=== PATIENT | female | born 1995 | race Caucasian/White ===

== ENCOUNTER 2018-04-12 17:24 | Emergency (ER) | payer OTHER ==
[2018-04-12 17:39] VITALS: BP 125/88
--- NOTE | 2018-04-12 17:49 | EDPHY ---
H & P Time Seen by Provider: 04/12/18 17:45 HPI/ROS: CHIEF COMPLAINT: Left elbow pain post fall on outstretched wrist hand HISTORY OF PRESENT ILLNESS: 22-year-old female with up-to-date tetanus complaining of left elbow pain after she sustained a mechanical fall while walking in a parking lot landing on her outstretched hand and then impacted her left elbow. She denies hand wrist pain. This was a mechanical non syncopal episode. She has reproducible pain with range of motion and palpation. PHYSICAL EXAM (Prior to examination, patient consented to physical exam, hands were washed and my usual and customary physical exam procedures followed) 1) GENERAL: Well-developed, well-nourished, alert and oriented. Appears to be in no acute distress. 2) HEAD: Normocephalic 3) HEENT: Pupils equal, round, reactive to light bilaterally. 4) LUNGS: Breathing comfortably. 5) MUSCULOSKELETAL: Soft compartments. Tender to palpation dorsal left elbow. No radial head pain. He clavicle humerus shoulder nontender. Wrist hand nontender. 6) SKIN: Abrasion to the dorsal left elbow. Tender to palpation same location. No tenting. 7) VASCULAR: pulses and cap refill present are brisk 8) NEUROLOGIC: Radial, ulnar, median nerve function intact with no deficits appreciated on exam DIFFERENTIAL DIAGNOSIS: in no particular order including but not limited to fracture, sprain, compartment syndrome Xray of the left elbow interpreted by myself: Nondisplaced radial head fracture Procedure: Splint An upper extremity sling was applied by ER printer repair technician. After application of the splint I returned and re-examined the patient. The splint was adequately immobilizing the joint and distal to the splint the patient's circulation and sensation were intact. Patient shows no signs of compartment syndrome. Was given orthopedic precautions. Smoking Status: Never smoked Constitutional: Initial Vital Signs Temperature (C) 36.7 C 04/12/18 17:35 Heart Rate 72 04/12/18 17:35 Respiratory Rate 16 04/12/18 17:35 Blood Pressure 125/88 H 04/12/18 17:35 O2 Sat (%) 96 04/12/18 17:35 O2 Delivery Mode Room Air Allergies/Adverse Reactions: bacitracin [From Neosporin ([id number])] Allergy (Verified 04/12/18 17:35) neomycin [From Neosporin ([id number])] Allergy (Verified 04/12/18 17:35) polymyxin B [From Neosporin ([id number])] Allergy (Verified 04/12/18 17:35) Home Medications: Medication Instructions Recorded NK [No Known Home Meds] 04/12/18 MDM/Departure - MDM Imaging Results: Imaging Impressions Elbow X-Ray 04/12/18 17:39 Impression: Acute minimally impacted radial neck fracture with effusion. Images reviewed myself ED Course/Re-evaluation: I saw this patient independently based on established practice protocols. Care of patient under supervision of secondary supervising physician Dr George . - Depart Disposition: Home, Routine, Self-Care Clinical Impression: Radial head fracture, closed Qualifiers: Encounter type: initial encounter Fracture alignment: nondisplaced Laterality: left Qualified Code(s): S52.125A - Nondisplaced fracture of head of left radius , initial encounter for closed fracture Condition: Good Instructions: Elbow Fracture (ED) Additional Instructions: Return to the ER immediately if you experience discoloration, have worsening pain, numbness, tingling, or any other symptoms that concern you. If you received x-rays in the emergency department today, be advised, that ligamentous , tendon, muscular, and other non-bony injury cannot be fully ruled out. Try to keep your affected extremity elevated above the level of your chest, and keep cold packs on the affected area, for the next 48 hours. Adult Pain & Fever Control: We recommend Acetaminophen (Tylenol) and Ibuprofen (Motrin,Advil) for pain and fever control. When fever is high or pain severe, both drugs can be used at the same time, but at different intervals. Please note the time differences. Your dose is: Acetaminophen 650mg every 4 to 6 hours Ibuprofen 600mg every 6 hours with food OR Note: do not take Acetaminophen with Hydrocodone (Vicodin, Lortab) or Oycodone (Percocet). These medications also contain Acetaminophen. No more than 3000mg of Acetaminophen should be taken in 24 hours (for an adult). Referrals: Daphne Vincent MD [Medical Doctor] - 5-7 days, call for appt.
== END 2018-04-12 18:24 | disposition home or self-care (01) ==
DX: S52.125A Nondisplaced fracture of head of left radius, initial encounter for closed fracture (principal); W01.198A Fall on same level from slipping, tripping and stumbling with subsequent striking against other object, initial encounter; Y92.481 Parking lot as the place of occurrence of the external cause; Y99.8 Other external cause status; Y93.01 Activity, walking, marching and hiking
CPT/HCPCS: A4565

== ENCOUNTER 2018-06-29 19:38 | Emergency (ER) | payer OTHER ==
--- NOTE | 2018-06-29 19:54 | EDPHY ---
H & P Stated Complaint: chest pressure, SOB, right arm numbness for months intemittantly Time Seen by Provider: 06/29/18 19:54 - Personal History LMP (Females 10-55): Now Current Tetanus/Diphtheria Vaccine: Yes Current Tetanus Diphtheria and Acellular Pertussis (TDAP): Yes - Medical/Surgical History Hx Asthma: No Hx Chronic Respiratory Disease: No Hx Diabetes: No Hx Cardiac Disease: No Hx Renal Disease: No Hx Cirrhosis: No Hx Alcoholism: No Hx HIV/AIDS: No Hx Splenectomy or Spleen Trauma: No Other PMH: jaw surgery - Social History Smoking Status: Never smoked Constitutional: Initial Vital Signs Temperature (C) 36.6 C 06/29/18 19:45 Heart Rate 73 06/29/18 19:45 Respiratory Rate 18 06/29/18 19:45 Blood Pressure 138/94 H 06/29/18 19:45 O2 Sat (%) 100 06/29/18 19:45 O2 Delivery Mode Room Air Allergies/Adverse Reactions: bacitracin [From Neosporin ([id number])] Allergy (Verified 06/29/18 19:47) neomycin [From Neosporin ([id number])] Allergy (Verified 06/29/18 19:47) polymyxin B [From Neosporin ([id number])] Allergy (Verified 06/29/18 19:47) Home Medications: Medication Instructions Recorded NK [No Known Home Meds] 04/12/18 Medical Decision Making ED Course/Re-evaluation: CHIEF COMPLAINT: Shortness of breath. HISTORY OF PRESENT ILLNESS: This patient is a 22 year old female who presents with difficulty breathing and right upper extremity numbness. About one hour ago, she began feeling very lightheaded and started to lose her vision and hearing. She endorses associated chest tightness and numbness in her right arm. She states that she was breathing heavily and rapidly at first. The patient states this has happened about once per day for the past two weeks. She denies any history of anxiety or panic attacks. She cannot identify any unusual stressors lately. Denies any chance of . No fever, vomiting, diarrhea, urinary complaints, headache. No recent trauma or illness. REVIEW OF SYSTEMS: A comprehensive 10 system review of systems is otherwise negative aside from elements mentioned in the history of present illness and medical decision making. PHYSICAL EXAM: HR, BP, O2 Sat, RR. Temp noted General Appearance: Alert, well hydrated, appropriate, and non-toxic appearing. Head: Atraumatic without scalp tenderness or obvious injury Eyes: Pupils equal, round, reactive to light and accommodation, EOMI, no trauma , no injection. Ears: Clear bilaterally, no perforation, normal landmarks Nose: Atraumatic, no rhinorrhea, clear. Throat: There is no erythema or exudates, no lesions, normal tonsils, mucus membranes moist. Neck: Supple, 2+ carotid upstroke, nontender, no lymphadenopathy. Respiratory: No retractions, no distress, no wheezes, and no accessory muscle use. Lungs are clear to auscultation bilaterally. Cardiovascular: Regular rate and rhythm, no murmurs, rubs, or gallops. Bilateral carotid, radial, dorsalis pedis, and posterior tibial pulses intact. Good capillary refill all extremities. Gastrointestinal: Abdomen is soft, nontender, non-distended, no masses, no rebound, no guarding, no peritoneal signs. Musculoskeletal: Normal active ROM of all extremities, atraumatic. Neurological: Alert, appropriate, and interactive. The patient has normal DTRs and non-focal cranial nerves, motor, sensory, and cerebellar exam. Skin: No rashes, good turgor, no nodules on palpation. Past medical history: Denies. Past surgical history: Noncontributory. Family history: Noncontributory. Social history: Student at [employer]. Lives in [place]. Single. DIAGNOSTICS/PROCEDURES/CRITICAL CARE TIME: The 12 lead EKG was interpreted by myself. Sinus rhythm. See hard copy and/or "tracemaster" electronic copy for interpretation. DIFFERENTIAL DIAGNOSIS: The differential diagnosis for the patient's dizziness included but was not limited to peripheral and central causes of vertigo, orthostatic causes including dehydration, cardiogenic and neurogenic causes, and blood loss. MEDICAL DECISION MAKIN22 year old female presents following after an episode of rapid breathing, lightheadedness, and upper extremity numbness and paresthesias. Exam is unremarkable. Plan for EKG, I-stat chemistries and troponin. EKG and labs are unremarkable. 20:52 Reassessed patient. Laboratory results discussed. Plan to discharge home in good condition. Follow up and return precautions discussed. She is comfortable with this plan. - Data Points Laboratory Results: 06/29/18 06/29/18 20:11 20:10 POC Hgb 14.3 gm/dL gm/dL (12.6-16.3) POC Hct 42 % % (38-47) POC Sodium 143 mEq/L mEq/L (135-145) POC Potassium 3.4 mEq/L mEq/L (3.3-5.0) POC Chloride 105 mEq/L mEq/L (97-110) POC BUN 6 mg/dL L mg/dL (7-23) POC Creatinine 0.6 mg/dL mg/dL (0.6-1.0) POC Glucose 104 mg/dL H mg/dL (70-100) POC Troponin I 0.01 ng/mL ng/mL (0.00-0.08) Point of Care Test Results: Chemistry 06/29/18 06/29/18 20:11 20:10 POC Sodium 143 mEq/L mEq/L (135-145) POC Potassium 3.4 mEq/L mEq/L (3.3-5.0) POC Chloride 105 mEq/L mEq/L (97-110) POC BUN 6 mg/dL L mg/dL (7-23) POC Creatinine 0.6 mg/dL mg/dL (0.6-1.0) POC Glucose 104 mg/dL H mg/dL (70-100) POC Troponin I 0.01 ng/mL ng/mL (0.00-0.08) ISTAT H&H 06/29/18 20:11 POC Hgb 14.3 gm/dL gm/dL (12.6-16.3) POC Hct 42 % % (38-47) Departure - Departure Disposition: Home, Routine, Self-Care Clinical Impression: Panic attack Condition: Good Instructions: Stress (ED), Panic Attack (ED) Additional Instructions: Return to the emergency department for fever, chest pain, shortness of breath, or other worsening of condition. Follow up with your primary care provider for further concerns. Referrals: Qian Victor MD [Medical Doctor] - As per Instructions Report Scribed for: Escobar Kruger Report Scribed by: Maia Bee Date of Report: 06/29/18 Time of Report: 20:52
[2018-06-29 20:58] VITALS: BP 122/76
--- NOTE | 2018-06-29 21:06 | CPEKG ---
Test Reason : OPEN Blood Pressure : / mmHG Vent. Rate : 075 BPM Atrial Rate : 075 BPM P-R Int : 140 ms QRS Dur : 078 ms QT Int : 399 ms P-R-T Axes : -08 042 028 degrees QTc Int : 446 ms Sinus rhythm Confirmed by Escobar Kruger ([id number]) on 06/29/2018 9:05:55 PM Referred By: Confirmed By:Escobar Kruger
== END 2018-06-29 20:57 | disposition home or self-care (01) ==
DX: F41.0 Panic disorder [episodic paroxysmal anxiety] (principal)
CPT/HCPCS: 82435-PO; 82565-PO; 82947-PO; 84132-PO; 84295-PO; 84484-PO; 84520-PO; 85014-PO